=== PATIENT | male | born 1985 | race Caucasian/White ===

== ENCOUNTER 2016-08-07 01:14 | Emergency (ER) | payer BC ==
--- NOTE | 2016-08-07 01:34 | ER NURSING DOCUMENTATION ---
Nurse's Notes [facility] Name:Kian Low Age:31 yrs Sex:Male :1985 Arrival Date:08/07/2016 Time:01:14 Bed2 Private MD: Diagnosis:Dentalgia;Dental Abscess Presentation: 08/07 01:20 Acuity: EMMANUEL 4 01:25 Presenting complaint: Patient states: Pt had a filling done one month ago, last week he rh began having minor pain. Last night pain increased and patient now has facial swelling on the affected side. No fever or chills. Transition of care: Home. 01:25 Method Of Arrival: Walk In Triage Assessment: :26 General: Appears in no apparent distress, Behavior is cooperative. Pain: Complains of rh pain in upper left first bicuspid Also complains of Facial swelling on the left side. EENT: Reports pain. Neuro: Level of Consciousness is awake, alert, obeys commands, Oriented to person, place, time, event. Cardiovascular: Capillary refill < 3 seconds. Historical: - Allergies: PENICILLINS; Amoxicillin; - Home Meds: 1. None - PMHx: None; - PSHx: None; - Tetanus: < 10 years. - Ebola Screening: : Patient negative for fever greater than or equal to 101.5 degrees Fahrenheit, and additional compatible Ebola Virus Disease symptoms. - Immunization history: Flu Vaccine >1 year. - Social history: Smoking status: Patient states was never smoker of tobacco. Screenin:28 Infectious Disease Risk None. Abuse screen: Denies threats or abuse. Denies injuries rh from another. Nutritional screening: No deficits noted. Assessment: :28 See Triage Assessment done by same RN. Vital Signs: :27 BP 137 / 92; Pulse 88; Resp 15; Temp 98.3(O); Pulse Ox 94% on R/A; Weight 79.38 kg; rh Height 5 ft. 10 in. (177.80 cm); Pain 3/10; :27 Body Mass Index 25.11 (79.38 kg, 177.80 cm) ED Course: 01:15 Patient arrived in ED. [facility] 01:15 Notified ED Physician of patient's arrival and chief complaint. Dr. Lucas notified. 01:20 Leanna Burgess is Primary Nurse. 01:20 Triage completed. 01:28 Lloyd Lucas MD is Attending Physician. cd 01:28 Valuables Remains with patient Patient has correct armband on for positive rh identification. Administered Medications: 01:30 Drug: Clindamycin 300 mg; Route: PO; 01:33 Follow up: Response: Medication administered at discharge. Outcome: :29 Discharge ordered by . 01:33 Discharged to home ambulatory. 01:33 Condition: stable 01:33 Discharge Assessment: Patient awake, alert and oriented x 3. No cognitive and/or functional deficits noted. Patient verbalized understanding of disposition instructions. 01:33 Discharge instructions given to patient, Instructed on discharge instructions, follow up and referral plans. medication usage, Demonstrated understanding of instructions, medications, Prescriptions given X 1. 01:34 Patient left the ED. rh Signatures: Lloyd Lucas MD MD Leanna Burgess [facility]
--- NOTE | 2016-08-07 01:34 | ER PHYSICIAN DOCUMENTATION ---
Physician Documentation [facility] Name:Kian Low Age:31 yrs Sex:Male :1985 Arrival Date:08/07/2016 Time:01:14 Bed2 Private MD: Lloyd Stearns Disposition: 08/07/16 01:29 Discharged to Home/Self Care. Impression: Dentalgia, Dental Abscess. - Condition is Good. - Discharge Instructions: DENTAL ABSCESS, TOOTH PAIN - DENTAL PAIN. - Prescriptions for Clindamycin HCl 300 mg Oral Capsule - take 1 capsule by ORAL route every 6 hours for 10 days; 40 capsule. - Medical Reconciliation form form. - Follow up: Private Physician; When: 1 week; Reason: Recheck today's complaints, Continuance of care. - Problem is new. - Symptoms are unchanged. HPI: 08/07 01:15 This 31 yrs old Male presents to ER via Walk In with complaints of Toothache cd and facial swelling. 01:15 The patient presents with pain, that is acute, swelling. The problem is located in the cd upper left first bicuspid. Onset: The symptom(s)/episode began/occurred acutely, today. Duration: The symptoms are continuous, and are steadily getting worse. Associated signs and symptoms: Pertinent positives: pain, swelling, facial. Severity of symptoms: At their worst the symptoms were mild, in the emergency department the symptoms are unchanged. Patient reports having dental work done 1 month ago.. Historical: - Allergies: PENICILLINS; Amoxicillin; - Home Meds: 1. None - PMHx: None; - PSHx: None; - Tetanus: < 10 years. - Ebola Screening: : Patient negative for fever greater than or equal to 101.5 degrees Fahrenheit, and additional compatible Ebola Virus Disease symptoms. - Immunization history: Flu Vaccine >1 year. - Social history: Smoking status: Patient states was never smoker of tobacco. ROS: 01:27 Constitutional: Negative for chills, fever, poor PO intake. cd 01:27 ENT: Positive for dental pain, swelling in region. Exam: :27 Constitutional: The patient appears in no acute distress, alert, awake, cd non-diaphoretic, non-toxic. 01:27 ENT: Mouth: Lips: normal, Oral mucosa: normal, Gums: normal with healthy appearance, abscess, that is minimal, of the upper left first bicuspid, Dental exam: abscess, that is mild, pain, that is mild, facial swelling. 01:27 Neck: Exam negative for acute changes. Vital Signs: 01:27 BP 137 / 92; Pulse 88; Resp 15; Temp 98.3(O); Pulse Ox 94% on R/A; Weight 79.38 kg; rh Height 5 ft. 10 in. (177.80 cm); Pain 3/10; 01:27 Body Mass Index 25.11 (79.38 kg, 177.80 cm) MDM: 01:28 Patient medically screened. cd 01:29 Data reviewed: vital signs, nurses notes, old medical records, and as a result, I will cd discharge patient, administer antibiotics Cleocin. Data interpreted: Pulse oximetry: on room air is 94 %. Interpretation: normal. Counseling: I had a detailed discussion with the patient and/or guardian regarding: the historical points, exam findings, and any diagnostic results supporting the discharge/admit diagnosis, the need for outpatient follow up, for a recheck, for a referral to a specialist, a dentist, to return to the emergency department if symptoms worsen or persist or if there are any questions or concerns that arise at home. Dispensed Medications: 01:30 Drug: Clindamycin 300 mg; Route: PO; 01:33 Follow up: Response: Medication administered at discharge. Signatures: Lloyd Lucas MD MD cd Hofsess, Rachel
[2016-08-07] MEDS ORDERED: CLINDAMYCIN HCL 150 MG CAPSULE PO ONE (01:40)
== END 2016-08-07 01:34 | disposition home or self-care (01) ==
LOC: ER 01:14
DX: K04.7 Periapical abscess without sinus (principal); K08.89 Other specified disorders of teeth and supporting structures; R22.0 Localized swelling, mass and lump, head
CPT/HCPCS: 99283